=== PATIENT | female | born 1955 | race African-American/Black ===

== ENCOUNTER 2016-10-18 20:01 | Emergency (ER) | payer MEDICARE, MEDICAID ==
[~2016-10-18] VITALS: Ht 165.1 cm; Wt 65.0 kg
[~2016-10-18 20:01] MED LIST: ALPR2TAB2 PO; HYDR-3307 PO
[2016-10-18] MEDS ORDERED: ONDANSETRON 2MG/ML, 2ML IVPush ONE (21:00)
[2016-10-18] MEDS ORDERED: SODIUM CHLORIDE 0.9% 1,000ML IVBOLUS ONE (21:00)
[2016-10-18] MEDS ORDERED: SODIUM CHLORIDE FLUSH 10ML SYR IVF ONE (21:00)
[2016-10-18] MEDS ORDERED: ONDANSETRON 2MG/ML, 2ML ONE (21:03)
[2016-10-18 21:33] LABS: ASPARTATE AMINO TRANSFERASE 24 U/L (15-37); BLOOD UREA NITROGEN 12 mg/dL (7-18)
[2016-10-18 23:14] VITALS: BP 121/61
[2016-10-18] MEDS ORDERED: LORazepam 1MG TABLET ONE (23:28)
[2016-10-19] MEDS ORDERED: LORazepam 1MG TABLET PO ONE
== END 2016-10-19 00:13 | disposition home or self-care (01) ==
LOC: ED 23:59
DX: R11.2 Nausea with vomiting, unspecified (principal); F41.1 Generalized anxiety disorder; D64.9 Anemia, unspecified; M79.7 Fibromyalgia; M79.606 Pain in leg, unspecified; G89.29 Other chronic pain
CPT/HCPCS: 36415; 71010; 80053; 83690; 85025; 93005; 96361; 96374; 99285; J2405; J7030

== ENCOUNTER 2020-01-12 13:58 | Emergency (ER) | payer MEDICARE, MEDICAID ==
[~2020-01-12] VITALS: Ht 165.1 cm; Wt 69.8 kg
[~2020-01-12 13:58] MED LIST changes: +HYDR-3246 PO; -HYDR-3307 PO
--- NOTE | 2020-01-12 15:11 | NUR ---
SUPERVISOR RECORDS CHANGE NOTE: PT CALLED INTO TRIAGE FOR EXAM BY ADAMS ROSAS
--- NOTE | 2020-01-12 15:27 | NUR ---
[employer] SUPERVISOR NOTE: UPON EXAM BY ADAMS ROSAS, PT STATES SHE HAS HAD INTERMITTENT DIZZINESS FOR SEVERAL WEEKS, FALL DAYS AGO WAS BECAUSE SHE TRIPPED. DOES ADMIT TO LOC AFTER FALL, PT STATES SHE HAS MIDLINE CERVICAL PAIN AND HEADACHE SINCE FALL. EKG ORDERED BY ADAMS, COMPLETED BY THIS RN, REVIEWED BY ULISES TABARES. PT REFUSES C COLLAR DESPITE EDUCATION REGARDING RISKS OF REFUSAL. PT WHEELED TO ROOM 13 FROM TRIAGE.
[2020-01-12 15:53] LABS: ALBUMIN 3.9 g/dL (3.4-5.0); ANION GAP 5 mmol/L (5-15); CHLORIDE 106 mmol/L (98-107); CREATININE 0.92 mg/dL (0.55-1.02)
[2020-01-12 16:05] LABS: MEAN CORPUSCULAR HEMOGLOBIN 20.5 pg (27.0-34.8); MEAN CORPUSCULAR HGB CONC 30.6 g/dL (32.4-35.8); MEAN CORPUSCULAR VOLUME 66.9 fL (80-100); MEAN PLATELET VOLUME 9.5 fL (7.4-10.4); PLATELET COUNT 303 x10^3/uL (130-400); RED BLOOD COUNT 4.62 x10^6/uL (3.82-5.3); RED CELL DISTRIBUTION WIDTH 19.8 % (9.6-15.2)
--- NOTE | 2020-01-12 16:05 | NUR ---
ERP AT BEDSIDE. PT DENIES ANY NEEDS OR CONCERNS, CALL LIGHT IN REACH.
[2020-01-12 16:21] VITALS: BP 112/72
[2020-01-12 16:29] LABS: MD YES
[2020-01-12 16:42] LABS: BAND#(MANUAL) 0.04 x10^3/uL; BANDS%(MANUAL) 1 % (0-7); EOS#(MANUAL) 0.25 x10^3/uL (0.0-0.4); EOS% (MANUAL) 6 % (1-7); LYMPH#(MANUAL) 1.56 x10^3/uL (1-3.4); LYMPHS% (MANUAL) 38 % (22-44); MONOS#(MANUAL) 0.12 x10^3/uL (0.3-2.7); MONOS% (MANUAL) 3 % (2-9); SEG#(MANUAL) 2.13 x10^3/uL (1.8-6.8); SEGS% (MANUAL) 52 % (42-75)
[2020-01-12 16:43] LABS: ANISOCYTOSIS 1+; HYPOCHROMIA 1+; MICROCYTOSIS 2+
[2020-01-12 16:45] LABS: <PLATELET ESTIMATE> ADEQUATE; <PLT MORPHOLOGY> NORMAL PLT MORPH; OVALOCYTES 1+
== END 2020-01-12 17:56 | disposition home or self-care (01) ==
LOC: ED 15:43
DX: S70.01XA Contusion of right hip, initial encounter (principal); S09.90XA Unspecified injury of head, initial encounter; M54.2 Cervicalgia; R42 Dizziness and giddiness; R94.31 Abnormal electrocardiogram [ECG] [EKG]; F41.1 Generalized anxiety disorder; W01.198A Fall on same level from slipping, tripping and stumbling with subsequent striking against other object, initial encounter; Y93.89 Activity, other specified; Y92.009 Unspecified place in unspecified non-institutional (private) residence as the place of occurrence of the external cause; Y99.8 Other external cause status
CPT/HCPCS: 36415; 70450; 72125; 80048; 82040; 85025; 93005; 99285